=== PATIENT | female | born 1945 | race Caucasian/White ===

== ENCOUNTER 2016-10-08 10:11 | Outpatient (CLI) ==
[2014-07-13 12:08] VITALS: BMI 38.0
[2016-10-08 10:31] LABS: HEMATOCRIT 36.9 % (37.0-47.0); HEMOGLOBIN 12.2 g/dl (12.0-16.0); MEAN CORPUSCULAR HEMOGLOBIN 28.3 pg (27.0-31.0); MEAN CORPUSCULAR HGB CONC 33.1 (31.8-35.4); MEAN CORPUSCULAR VOLUME 85.6 fl (81.0-99.0); RED BLOOD COUNT 4.31 10^6/ul (4.20-5.40); WHITE BLOOD COUNT 7.4 K/ul (4.6-10.2)
[2016-10-08 11:13] LABS: ALBUMIN 3.2 g/dL (3.4-5.0); ALBUMIN/GLOBULIN RATIO 0.86; ANION GAP 14.2; BILIRUBIN,TOTAL 0.88 mg/dL (0.00-1.20); BUN/CREATININE RATIO 18.82; CALCIUM 9.3 mg/dL (8.2-10.2); CREATININE 0.85 mg/dL (0.60-1.30); POTASSIUM 4.2 mmol/L (3.5-5.10); TOTAL PROTEIN 6.9 g/dL (5.8-8.1)
[2016-10-09 15:50] LABS: URINE MALB/CR RATIO 21.1 mg/g creat (0.0-30.0)
== END 2016-10-08 10:12 | disposition home or self-care (01) ==
LOC: LAB 10:11
PROVIDERS: ATTEND Internal Medicine Endocrinology, Diabetes & Metabolism
DX: E11.9 Type 2 diabetes mellitus without complications (principal); E55.9 Vitamin D deficiency, unspecified; R53.83 Other fatigue; I25.10 Atherosclerotic heart disease of native coronary artery without angina pectoris; R94.6 Abnormal results of thyroid function studies
CPT/HCPCS: 36415; 80053; 80061; 82043; 82306; 83036; 84439; 84443; 85027

== ENCOUNTER 2017-01-22 13:45 | Emergency (ER) ==
[2017-01-22 13:58] VITALS: BP 137/82; TEMP 99.1; BMI 37.5
--- NOTE | 2017-01-22 14:11 | ED.PDOC ---
General ED Provider: Dr. HERNANDO WATKINS JR Chief Complaint: Bite Stated Complaint: Red bumps to left calf left inner thigh bite. not see insect No Tx at home[ End ]99.1 75 20 97% 137/82 3/10 Time Seen by Physician: 14:10 Mode of Arrival: Walk-In Information Source: Patient Exam Limitations: No limitations Primary Care Provider: TOMMY VANN Nursing and Triage Documentation Reviewed and Agree: No Skin Complaint Exam - Skin Rash/Itching Complaint/Exam Symptoms Are: Still present Initial Severity: Mild Current Severity: Mild Location: left posterior calf an d left medial thigh- two sites Potential Exposures: Reports: Insect bite, Other ((note cut on left forearm- with ecchymoses ventrally but also note dorsal ecchymoses- statesx since started plavix) Review of Systems - Review Of Systems Constitutional: Reports: No symptoms Eyes: Reports: No symptoms Ears, Nose, Mouth, Throat: Reports: No symptoms Respiratory: Reports: No symptoms Cardiac: Reports: No symptoms GI: Reports: No symptoms : Reports: No symptoms Musculoskeletal: Reports: No symptoms Skin: Reports: Bruising, Lesions Neurological: Reports: No symptoms Endocrine: Reports: No symptoms Hematologic/Lymphatic: Reports: No symptoms All Other Systems: Other Past Medical History - Past Medical History Endocrine: Reports: DM 2 Cardiovascular: Reports: Hypertension Respiratory: Reports: COPD, Asthma Hematological: Reports: None Gastrointestinal: Reports: None Genitourinary: Reports: None Neuro/Psych: Reports: Depression Musculoskeletal: Reports: Arthritis Cancer: Reports: None Last Menstrual Period: hysterectomy - Surgical History General Surgical History: Reports: Hysterectomy, Cholecystectomy, Back Surgery - Family History Family History: Reports: None - Social History Smoking Status: Never smoker Hx Substance Use: No Alcohol Screening: None Physical Exam - Physical Exam Appearance: Well-appearing, Obese Pain Distress: Mild Neck: Supple Respiratory: Airway patent Skin: Warm, Dry, Normal color (note lesions) Neurological: Sensation intact, Motor intact, Reflexes intact, Cranial nerves intact, Alert, Oriented Critical Care Note - Critical Care Note Total Time (mins): 0 Course - Course Vital Signs: Temp Pulse Resp BP Pulse Ox 01/22/17 13:46 99.1 F 75 20 137/82 97 Departure - Departure Time of Disposition: 14:18 Disposition: HOME SELF-CARE Discharge Problem: Insect bite Qualifiers: Encounter type: initial encounter Qualifier Code: (W57.XXXA) Bitten or stung by nonvenomous insect and other nonvenomous arthropods, initial encounter Instructions: Insect Bite or Sting (ED) Condition: Good Pt referred to PMD for follow-up: Yes Additional Instructions: may use warm soaks three times a day may use benadryl if itching recheck if increasing in size if increase pain or drainage recommend insect spray when outside note bruising on arms; 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 if 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 plavix with bruising Allergies/Adverse Reactions: Allergies cefaclor [From Ceclor] Adverse Reaction (Verified 01/22/17 13:52) cephalexin monohydrate [From Keflex] Adverse Reaction (Verified 01/22/17 13:52) erythromycin base Adverse Reaction (Verified 01/22/17 13:52) minocycline HCl [From Minocin] Adverse Reaction (Verified 01/22/17 13:52) Penicillins Adverse Reaction (Verified 01/22/17 13:52) Skin Cleanser Combination No.4 [From Minocin] Adverse Reaction (Verified 13:52) Home Medications: Ambulatory Orders Citalopram Hydrobromide [Celexa] 20 mg PO DAILY 04/07/13 Furosemide [Lasix] 40 mg PO DAILY 04/07/13 Lisinopril [Zestril] 20 mg PO DAILY 04/07/13 Metformin HCl 1,000 mg PO BID LUNCH & SUPPER 04/07/13 Albuterol Sulfate [Proair Hfa] 2 puff IH QID 07/13/14 Celecoxib [Celebrex] 200 mg PO DAILYWM 07/13/14 Esomeprazole Magnesium [Nexium] 40 mg PO DAILYWM 07/13/14 Fluticasone/Salmeterol 250/50 [Advair 250-50 Diskus] 1 puff IH DAILY 07/13/14 Ipratropium/Albuterol Neb [Duoneb] 1 vial NEB RTQID 07/13/14 Potassium Chloride [Klor-Con 10] 10 meq PO DAILY 07/13/14
== END 2017-01-22 14:28 | disposition other institution (70) ==
LOC: ED 13:45
DX: S70.362A Insect bite (nonvenomous), left thigh, initial encounter (principal); S80.862A Insect bite (nonvenomous), left lower leg, initial encounter; W57.XXXA Bitten or stung by nonvenomous insect and other nonvenomous arthropods, initial encounter
CPT/HCPCS: 99282

== ENCOUNTER 2017-02-27 10:16 | Outpatient (CLI) | END 2017-02-27 10:17 | disposition home or self-care (01) | LOC: LAB 10:16 | PROVIDERS: ATTEND Internal Medicine Endocrinology, Diabetes & Metabolism | DX: E05.90 Thyrotoxicosis, unspecified without thyrotoxic crisis or storm (principal); E11.9 Type 2 diabetes mellitus without complications | CPT/HCPCS: 36415; 83036; 84439; 84443; 84481; 86376 ==

== ENCOUNTER 2017-04-26 19:40 | Outpatient (CLI) | END 2017-04-26 19:41 | disposition short-term general hospital (02) | LOC: AMBL 19:40 | PROVIDERS: ATTEND Internal Medicine Geriatric Medicine | DX: M25.512 Pain in left shoulder (principal); W01.0XXA Fall on same level from slipping, tripping and stumbling without subsequent striking against object, initial encounter ==

== ENCOUNTER 2017-05-01 21:37 | Outpatient (CLI) | END 2017-05-01 21:38 | disposition short-term general hospital (02) | LOC: AMBL 21:37 | PROVIDERS: ATTEND Internal Medicine Geriatric Medicine | DX: M79.89 Other specified soft tissue disorders (principal); Z98.890 Other specified postprocedural states ==

== ENCOUNTER 2017-07-15 13:08 | Outpatient (CLI) ==
[2017-07-15 13:44] LABS: ANION GAP 20.3; BUN/CREATININE RATIO 23.91; CALCIUM 9.8 mg/dL (8.2-10.2); CREATININE 2.3 mg/dL (0.60-1.30); POTASSIUM 4.3 mmol/L (3.5-5.10)
== END 2017-07-15 13:09 | disposition home or self-care (01) ==
LOC: LAB 13:08
PROVIDERS: ATTEND Nurse Practitioner Family
DX: I50.23 Acute on chronic systolic (congestive) heart failure (principal)
CPT/HCPCS: 36415; 80048

== ENCOUNTER 2017-07-23 12:50 | Outpatient (CLI) | payer OTHER ==
[2017-07-23 13:30] LABS: ANION GAP 14.5; BUN/CREATININE RATIO 17.05; CALCIUM 9.3 mg/dL (8.2-10.2); CREATININE 1.29 mg/dL (0.60-1.30); POTASSIUM 4.5 mmol/L (3.5-5.10)
== END 2017-07-23 12:51 | disposition home or self-care (01) ==
LOC: LAB 12:50
PROVIDERS: ATTEND Physician Assistant
DX: R35.8 Other polyuria (principal)
CPT/HCPCS: 36415; 80048

== ENCOUNTER 2017-07-28 23:16 | Outpatient (CLI) | END 2017-07-28 23:17 | disposition left against medical advice (07) | LOC: AMBL 23:16 | PROVIDERS: ATTEND Family Medicine | DX: Z04.3 Encounter for examination and observation following other accident (principal); W19.XXXA Unspecified fall, initial encounter ==

== ENCOUNTER 2017-11-04 07:52 | Outpatient (CLI) | END 2017-11-04 07:53 | disposition left against medical advice (07) | LOC: AMBL 07:52 | PROVIDERS: ATTEND Internal Medicine | DX: S09.90XA Unspecified injury of head, initial encounter (principal); W19.XXXA Unspecified fall, initial encounter; R60.0 Localized edema; I50.9 Heart failure, unspecified; R53.1 Weakness ==

== ENCOUNTER 2017-11-06 13:43 | Outpatient (CLI) | payer OTHER | END 2017-11-06 13:44 | disposition home or self-care (01) | LOC: LAB 13:43 | PROVIDERS: ATTEND Internal Medicine Endocrinology, Diabetes & Metabolism | DX: E11.9 Type 2 diabetes mellitus without complications (principal); E03.9 Hypothyroidism, unspecified | CPT/HCPCS: 36415; 80053; 83036; 84439; 84443; 85027 ==

== ENCOUNTER 2018-01-10 03:25 | Outpatient (CLI) | END 2018-01-10 03:30 | disposition left against medical advice (07) | LOC: AMBL 03:25 | PROVIDERS: ATTEND Emergency Medicine | DX: Z74.2 Need for assistance at home and no other household member able to render care (principal); S40.819A Abrasion of unspecified upper arm, initial encounter; W06.XXXA Fall from bed, initial encounter ==

== ENCOUNTER 2018-02-04 11:50 | Outpatient (CLI) ==
--- NOTE | 2018-02-04 13:08 | DI ---
EXAM: Three views of the left hand HISTORY: Fall with pain. COMPARISON: None FINDINGS: There is narrowing of the radiocarpal joint and the first CMC joint. There is narrowing of the DIP and PIP joints with minimal osteophyte formation. The MCP joints are relatively well mainta ined. The soft tissues demonstrate mild soft tissue swelling. IMPRESSION: 1. No acute abnormality or displaced fracture. 2. Scattered degenerative disease most pronounced in the DIP and PIP joint.
--- NOTE | 2018-02-04 13:10 | DI ---
EXAM: Two views of the left hip HISTORY: Fall with left hip pain. COMPARISON: None FINDINGS: There is narrowing and degenerative change of the left hip joint space. There is no displa angela fracture or dislocation. There is no lytic or blastic lesion. Limited views of the pelvis is un remarkable. The soft tissues are normal. IMPRESSION: Degenerative disease of the left hip with no displaced fracture or dislocation identified.
== END 2018-02-04 11:51 | disposition home or self-care (01) ==
LOC: RAD 11:50
PROVIDERS: ATTEND Family Medicine
DX: S79.912A Unspecified injury of left hip, initial encounter (principal); S69.92XA Unspecified injury of left wrist, hand and finger(s), initial encounter; W19.XXXA Unspecified fall, initial encounter

== ENCOUNTER 2018-02-15 15:05 | Observation (INO) ==
[2018-02-15] MEDS ORDERED: LEVAQUIN 500 MG in PREMIX 100 ML D5W 1 BAG IV STA (15:17)
[2018-02-15] MEDS ORDERED: DUONEB NEB STA (15:18)
[2018-02-15] MEDS ORDERED: SOLU-MEDROL 40 MG IVP STA (15:33)
[2018-02-15] MEDS ORDERED: PHENERGAN WITH CODEINE 6.25/10 MG/5 ML PO STA (15:36)
[2018-02-15] MEDS ORDERED: LEVAQUIN 100 ML IV ONE (15:37)
--- NOTE | 2018-02-15 16:19 | ED.PDOC ---
Procedures - IV/Art Line Insertion Location: Rt wrist Type of Line: Peripheral IV Invasive Line/IV Catheter Gauge: 22 Number of Attempts: 1 Blood Return Positive: Yes Invasive Line/IV Flushes Without Difficulty: Yes Conscious Sedation - Pre-op Assessment Weight: 208 lb Surgical History: GALLBLADDER. HYSTERECTOMY. left shoulder repari - Medical History Past Medical History: Hypertension, Diabetes, COPD, Asthma, Depression, Other Other History: DDD BACK - Physical Exam Heart Rate/Rhythm: Regular Rhythm
--- NOTE | 2018-02-15 16:34 | CT ---
EXAM: CT chest without contrast TECHNIQUE: Helical axial CT of the chest was performed without contrast with coronal and sagittal rec onstructions. COMPARISON: Chest x-ray from 07/13/2014 HISTORY: Cough and fever FINDINGS: Lung parenchyma: There is some minimal bibasilar atelectasis. There is a noncalcified soft tissue no dule in the right upper lobe laterally measuring 0.7 cm in diameter. No other nodules are seen. The re is no infiltrate or failure or effusion. Mediastinum: No pathologic hilar or mediastinal adenopathy. There are advanced coronary calcification s. There is no pericardial effusion. There is moderate calcific atherosclerosis of the aorta with no aneurysm. Upper Abdomen: No focal or acute abnormality. There has been prior cholecystectomy. The adrenal gland s are somewhat prominent with no focal mass identified. Osseous structures: Nothing acute. The thyroid gland is somewhat irregular and fairly prominent on the right. There has been prior ORIF for left humerus fracture. No supraclavicular or axillary adenopathy. IMPRESSION: 1. Bibasilar atelectasis with no effusion or infiltrate or failure. 2. Right upper lobe pulmonary nodule as described. Recommend further evaluation as per Fleischner S ociety guidelines below. 3. Other findings as above. Solitary nodule size: <6 mm - low risk patients: no follow-up needed - high risk patients: optional CT at 12 months Solitary nodule size: 6-8 mm - low risk patients: follow-up at 6-12 months, then consider further follow-up at 18-24 months - high risk patients: initial follow-up CT at 6-12 months and then at 18-24 months if no change Solitary nodule size: >8 mm - either low or high risk patients consider follow-up CT at 3 months, and/or CT-PET, and/or biopsy - -
--- NOTE | 2018-02-15 16:42 | ED.PDOC ---
General ED Provider: Dr. TOMMY VANN-ER Chief Complaint: Shortness of Air Stated Complaint: im coughing and wheezing Time Seen by Physician: 15:10 Mode of Arrival: Wheelchair Information Source: Patient, Family Exam Limitations: No limitations Primary Care Provider: TOMMY VANN Nursing and Triage Documentation Reviewed and Agree: Yes Does patient meet sepsis criteria?: No If yes, has appropriate treatment been initiated?: No System Inflammatory Response Syndrome: Not Applicable Sepsis Protocol: For patient's 13 years and over: Temp is 96.8 and below OR 101 and greater Pulse >90 BPM Resp >20/minute Acutely Altered Mental Status Are patient's symptoms suggestive of a new infection, such as: -Pneumonia -Skin, Soft Tissue -Endocarditis -UTI -Bone, Joint Infection -Implantable Device -Acute Abdominal Infection -Wound Infection -Meningitis -Blood Stream Catheter Infection -Unknown Respiratory Complaint Exam - Respiratory Complaint/Exam Onset/Duration: 24 hrs Symptoms Are: Still present Timing: Intermittent Initial Severity: Moderate Current Severity: Moderate Location: Chest Character: Reports: Productive cough Alleviating: Reports: Bronchodilators Associated Signs and Symptoms: Reports: Fever, Chills, Wheezing. Denies: Rapid breathing, Dyspnea, Chest pain, Pleuritic chest pain, Hemoptysis, Dizziness, Calf pain, Calf swelling, Edema, URI, Nasal congestion, Hoarseness History of Healthcare-Acquired Pneumonia: No Home Oxygen Use: No Recent Stress Test: No Recent Echo/LV Function: No Current Antibiotic Use: No Current Asthma Medication Use: No Respiratory Distress: None Inadequate Respiratory Effort: Yes Dysphagia Present: No Stridor Present: No JVD Present: No Accessory Muscle Use: No Retractions: Not Present Diminished Breath Sounds: No Sinus Tenderness: None Grunting Respirations: No Kussmaul Respirations: No Differential Diagnoses: COPD Exacerbation Review of Systems - Review Of Systems Constitutional: Reports: No symptoms Eyes: Reports: No symptoms Ears, Nose, Mouth, Throat: Reports: No symptoms Respiratory: Reports: Cough, Short of air Cardiac: Reports: No symptoms GI: Reports: No symptoms : Reports: No symptoms Musculoskeletal: Reports: No symptoms Skin: Reports: No symptoms Neurological: Reports: No symptoms Endocrine: Reports: No symptoms Hematologic/Lymphatic: Reports: No symptoms All Other Systems: Reviewed and Negative Past Medical History - Past Medical History Previously Healthy: No Endocrine: Reports: DM 2 Cardiovascular: Reports: Hypertension Respiratory: Reports: COPD, Asthma Hematological: Reports: None Gastrointestinal: Reports: None Genitourinary: Reports: None Neuro/Psych: Reports: Depression Musculoskeletal: Reports: Arthritis Cancer: Reports: None Last Menstrual Period: na - Surgical History General Surgical History: Reports: Hysterectomy, Cholecystectomy, Back Surgery - Family History Family History: Reports: None - Social History Smoking Status: Never smoker Hx Substance Use: No Alcohol Screening: None - Immunizations Tetanus Shot up to Date: Yes Physical Exam - Physical Exam Appearance: Ill-appearing Eyes: LULÚ, EOMI, Conjunctiva clear ENT: Ears normal, Nose normal, Oropharynx normal Neck: Supple Respiratory: Rhonchi, Wheezes Cardiovascular: RRR GI/: Soft, Nontender, No masses, Bowel sounds normal, No Organomegaly Musculoskeletal: Normal strength, ROM intact, No edema, No calf tenderness Skin: Warm, Dry, Normal color Neurological: Sensation intact, Motor intact, Reflexes intact, Cranial nerves intact, Alert, Oriented Psychiatric: Affect appropriate Interpretation - Radiology Interpretation Radiology Interpretation By: Radiologist Radiology Results: Negative Exam Interpreted: CT Scan - EKG Interpretation Time of EKG #1: 16:42 Rate: Normal Rhythm: Sinus Ectopy: None Gypsy: NL ST Segment: Normal Interpretation: nsr Critical Care Note - Critical Care Note Total Time (mins): 0 Course - Course Hematology/Chemistry: 02/15/18 15:30 02/15/18 15:30 Orders, Labs, Meds: Lab Review 02/15/18 02/15/18 02/15/18 15:15 15:30 15:30 WBC 12.22 H RBC 4.14 L Hgb 11.9 L Hct 37.1 MCV 89.6 MCH 28.7 MCHC 32.1 RDW Coeff of Amaya 13.9 Plt Count 250 Immature Gran % (Auto) 0.7 Neut % (Auto) 76.4 Lymph % (Auto) 12.7 Phelps % (Auto) 7.7 Eos % (Auto) 2.2 Baso % (Auto) 0.3 Immature Gran # (Auto) 0.1 Neut # (Auto) 9.3 H Lymph # (Auto) 1.6 Phelps # (Auto) 0.9 Eos # (Auto) 0.3 Baso # (Auto) 0.0 Puncture Site Rr O2 Saturation 95.0 ABG pH 7.438 ABG pCO2 36.4 ABG pO2 75.0 L ABG HCO3 24.6 ABG Total CO2 26 ABG Base Excess 0 Morteza Test + FiO2 % 21.0 Sodium 144 Potassium 4.1 Chloride 108 H Carbon Dioxide 22 L Anion Gap 18.1 BUN 16 Creatinine 1.20 Estimated GFR (MDRD) 44.00 BUN/Creatinine Ratio 13.33 Glucose 142 H Lactic Acid Calcium 9.4 Total Bilirubin 0.4 AST 14 L ALT 10 L Alkaline Phosphatase 88 B-Natriuretic Peptide Total Protein 6.9 Albumin 3.2 L Globulin 3.7 Albumin/Globulin Ratio 0.86 Procalcitonin 02/15/18 02/15/18 02/15/18 15:30 15:30 15:30 WBC RBC Hgb Hct MCV MCH MCHC RDW Coeff of Amaya Plt Count Immature Gran % (Auto) Neut % (Auto) Lymph % (Auto) Phelps % (Auto) Eos % (Auto) Baso % (Auto) Immature Gran # (Auto) Neut # (Auto) Lymph # (Auto) Phelps # (Auto) Eos # (Auto) Baso # (Auto) Puncture Site O2 Saturation ABG pH ABG pCO2 ABG pO2 ABG HCO3 ABG Total CO2 ABG Base Excess Morteza Test FiO2 % Sodium Potassium Chloride Carbon Dioxide Anion Gap BUN Creatinine Estimated GFR (MDRD) BUN/Creatinine Ratio Glucose Lactic Acid 41.5 H Calcium Total Bilirubin AST ALT Alkaline Phosphatase B-Natriuretic Peptide 102 H Total Protein Albumin Globulin Albumin/Globulin Ratio Procalcitonin 0.09 Orders Category Date Time Status ABG DRAW REQUEST Stat CARDIO 02/15/18 15:16 Completed NEBULIZER TREATMENT Stat CARDIO 02/15/18 15:18 Completed IV [ED IV/MEDIPORT/POWERPORT] .ONCE EMERGENCY 02/15/18 15:16 Active ABG Stat LAB 02/15/18 15:15 Completed BLOOD CULTURE (ED ONLY) Stat LAB 02/15/18 15:30 Received BNP [B-TYPE NATRIURETIC PEPTIDE] Stat LAB 02/15/18 15:30 Completed CBC W/ AUTO DIFF Stat LAB 02/15/18 15:30 Completed COMPREHENSIVE METABOLIC PANEL Stat LAB 02/15/18 15:30 Completed LACTIC ACID Stat LAB 02/15/18 15:30 Completed PROCALCITONIN Stat LAB 02/15/18 15:30 Completed 0.9 % Sodium Chloride [Saline Flush] MEDS 02/15/18 15:16 Ordered 1 syr IVF PRN PRN Codeine/Promethazine Syrup [Phenergan with Codeine 6.25 MEDS 02/15/18 15:36 Discontinued /10 mg/5 ml] 10 ml PO ONCE STA Ipratropium/Albuterol Neb [Duoneb] MEDS 02/15/18 15:18 Discontinued 1 vial NEB ONCE STA Levofloxacin/D5w [Levaquin] 100 ml MEDS 02/15/18 15:37 Discontinued IV .STK-MED Levofloxacin/D5w [Levaquin] 500 mg MEDS 02/15/18 15:17 Discontinued Premix 100 ml D5w 1 bag IV ONCE Methylprednisolone Sod Succ/Pf [Solu-Medrol 40 mg] MEDS 02/15/18 15:33 Discontinued [address] ONCE STA CT CHEST W/O CONTRAST Stat RADS 02/15/18 15:18 Completed Medications Generic Name Dose Route Start Last Admin Trade Name Freq PRN Reason Stop Dose Admin Sodium Chloride 1 syr 02/15/18 15:16 Saline Flush IVF PRN PRN To flush IV Discontinued Medications Generic Name Dose Route Start Last Admin Trade Name Freq PRN Reason Stop Dose Admin Albuterol/Ipratropium 1 vial 02/15/18 15:18 02/15/18 15:36 Duoneb NEB 02/15/18 15:19 1 vial ONCE STA Administration Levofloxacin/Dextrose 500 mg/ 100 mls @ 100 mls/hr 02/15/18 15:17 02/15/18 16 :22 Dextrose IV 02/15/18 16:16 100 mls/hr ONCE STA Administration Methylprednisolone Sodium Succinate 40 mg 02/15/18 15:33 02/15/18 16:22 Solu-Medrol 40 Mg IVP 02/15/18 15:34 40 mg ONCE STA Administration Promethazine HCl/Codeine 10 ml 02/15/18 15:36 02/15/18 15:47 Phenergan With Codeine 6.25/10 Mg/5 Ml PO 02/15/18 15:37 10 ml ONCE STA Administration Vital Signs: Temp Pulse Resp BP Pulse Ox 02/15/18 15:08 101.5 F H 101 H 22 143/87 H 94 L Departure - Departure Time of Disposition: 16:43 Disposition: PLACED OBSERVATION Discharge Problem: COPD exacerbation Instructions: COPD (Chronic Obstructive Pulmonary Disease) (ED) Condition: Good Pt referred to PMD for follow-up: Yes IPMP verified?: No Allergies/Adverse Reactions: Allergies cefaclor [From Ceclor] Adverse Reaction (Verified 02/15/18 15:12) cephalexin monohydrate [From Keflex] Adverse Reaction (Verified 02/15/18 15:12) erythromycin base Adverse Reaction (Verified 02/15/18 15:12) minocycline HCl [From Minocin] Adverse Reaction (Verified 02/15/18 15:12) Penicillins Adverse Reaction (Verified 02/15/18 15:12) Skin Cleanser Combination No.4 [From Minocin] Adverse Reaction (Verified 15:12) Home Medications: Ambulatory Orders Citalopram Hydrobromide [Celexa] 20 mg PO DAILY 04/07/13 Furosemide [Lasix] 40 mg PO DAILY 04/07/13 Lisinopril [Zestril] 20 mg PO DAILY 04/07/13 Metformin HCl 1,000 mg PO BID LUNCH & SUPPER 04/07/13 Albuterol Sulfate [Proair Hfa] 2 puff IH QID 07/13/14 Celecoxib [Celebrex] 200 mg PO DAILYWM 07/13/14 Esomeprazole Magnesium [Nexium] 40 mg PO DAILYWM 07/13/14 Fluticasone/Salmeterol 250/50 [Advair 250-50 Diskus] 1 puff IH DAILY 07/13/14 Ipratropium/Albuterol Neb [Duoneb] 1 vial NEB RTQID 07/13/14 Potassium Chloride [Klor-Con 10] 10 meq PO DAILY 07/13/14 Disposition Discussed With: Patient, Family
[2018-02-15] MEDS ORDERED: TYLENOL PO PRN (16:45)
[2018-02-15] MEDS ORDERED: PHENERGAN WITH CODEINE 6.25/10 MG/5 ML PO PRN (16:48)
[2018-02-15] MEDS ORDERED: GLUCOPHAGE ONE (17:13)
[2018-02-15] MEDS ORDERED: NON-FORMULARY MEDICATION (Metformin Hcl [Metformin Hcl] 500 MG) PO SCH (17:30)
[2018-02-15] MEDS: DUONEB NEB SCH ×2 (17:50→23:30)
[2018-02-15 18:04] VITALS: BMI 40.5
[2018-02-15] MEDS ORDERED: ADVAIR 250-50 DISKUS IH SCH (21:00)
[2018-02-15] MEDS ORDERED: COLACE PO SCH (21:00)
[2018-02-15] MEDS: MUCINEX PO SCH (21:42)
[2018-02-15] MEDS: SOLU-MEDROL 40 MG IVP SCH (21:45)
[2018-02-15] MEDS: HUMULIN R SUBCUT PRN (21:57)
[2018-02-16] MEDS: DUONEB NEB SCH ×6 (05:20→23:45)
[2018-02-16] MEDS: HUMULIN R SUBCUT PRN ×2 (05:46→12:00)
[2018-02-16] MEDS ORDERED: LOPRESSOR PO SCH (09:00)
[2018-02-16] MEDS: ASPIRIN EC PO SCH (09:38)
[2018-02-16] MEDS: NON-FORMULARY MEDICATION (Potassium Chloride [Klor-Con 10] 10 MEQ) PO SCH ×2 (09:38→20:19)
[2018-02-16] MEDS: ADVAIR 250-50 DISKUS IH SCH ×2 (09:39→20:18)
[2018-02-16] MEDS: SOLU-MEDROL 40 MG IVP SCH ×2 (09:39→20:41)
[2018-02-16] MEDS: NON-FORMULARY MEDICATION (Isosorbide Mononitrate [Isosorbide Mononitrate Er] 60 MG) PO SCH (09:40)
[2018-02-16] MEDS: CELEXA PO SCH (09:40)
[2018-02-16] MEDS: METHIMAZOLE 2.5 MG PO SCH (09:40)
[2018-02-16] MEDS: ERGOCALCIFEROL 2000 UNIT PO SCH (09:41)
[2018-02-16] MEDS: COLACE PO SCH ×2 (09:41→20:18)
[2018-02-16] MEDS: LEVAQUIN PO SCH (09:42)
[2018-02-16] MEDS: LASIX TAB PO SCH (09:42)
[2018-02-16] MEDS: LISINOPRIL 5 MG PO SCH (09:43)
[2018-02-16] MEDS: METOPROLOL SUCCINATE 50 MG PO SCH (09:43)
[2018-02-16] MEDS: TRADJENTA PO SCH (09:43)
[2018-02-16] MEDS: GUAIFENESIN 800 MG PO SCH ×3 (09:44→20:18)
[2018-02-16] MEDS: LIPITOR PO SCH (09:45)
[2018-02-16] MEDS: LOVENOX SUBCUT SCH (09:46)
[2018-02-16] MEDS: MUCINEX PO SCH (10:21)
[2018-02-16] MEDS: NON-FORMULARY MEDICATION (Metformin Hcl [Metformin Hcl] 500 MG) PO SCH ×2 (12:00→16:56)
[2018-02-16] MEDS: NON-FORMULARY MEDICATION (Esomeprazole Magnesium [Nexium] 40 MG) PO SCH (16:57)
[2018-02-16] MEDS: PLAVIX PO SCH (16:57)
[2018-02-17] MEDS: DUONEB NEB SCH ×3 (05:18→18:07)
[2018-02-17] MEDS: LEVAQUIN PO SCH (06:40)
[2018-02-17] MEDS: LASIX TAB PO SCH (06:40)
[2018-02-17] MEDS: SOLU-MEDROL 40 MG IVP SCH (08:52)
[2018-02-17] MEDS: CELEXA PO SCH (08:53)
[2018-02-17] MEDS: NON-FORMULARY MEDICATION (Potassium Chloride [Klor-Con 10] 10 MEQ) PO SCH (08:53)
[2018-02-17] MEDS: ADVAIR 250-50 DISKUS IH SCH (08:53)
[2018-02-17] MEDS: TRADJENTA PO SCH (08:53)
[2018-02-17] MEDS: COLACE PO SCH (08:53)
[2018-02-17] MEDS: ASPIRIN EC PO SCH (08:54)
[2018-02-17] MEDS: ERGOCALCIFEROL 2000 UNIT PO SCH (08:54)
[2018-02-17] MEDS: PLAVIX PO SCH (08:54)
[2018-02-17] MEDS: NON-FORMULARY MEDICATION (Isosorbide Mononitrate [Isosorbide Mononitrate Er] 60 MG) PO SCH (08:55)
[2018-02-17] MEDS: LISINOPRIL 5 MG PO SCH (08:55)
[2018-02-17] MEDS: LIPITOR PO SCH (08:55)
[2018-02-17] MEDS: METHIMAZOLE 2.5 MG PO SCH (08:55)
[2018-02-17] MEDS: METOPROLOL SUCCINATE 50 MG PO SCH (08:55)
[2018-02-17] MEDS: GUAIFENESIN 800 MG PO SCH ×2 (08:55→14:38)
[2018-02-17] MEDS: LOVENOX SUBCUT SCH (10:00)
[2018-02-17] MEDS: NON-FORMULARY MEDICATION (Metformin Hcl [Metformin Hcl] 500 MG) PO SCH ×2 (12:49→17:48)
[2018-02-17 16:21] VITALS: BP 114/56; TEMP 98.6
[2018-02-17] MEDS: NON-FORMULARY MEDICATION (Esomeprazole Magnesium [Nexium] 40 MG) PO SCH (17:48)
--- NOTE | 2018-04-01 10:49 | HP ---
CHIEF COMPLAINT: "I am coughing and I am wheezing." DISCUSSION: This is a 72-year-old lady with history of COPD who presented for treatment in the Emergency Department with shortness of breath. For 4 to 5 days she has had shortness of breath with cough productive of light yellow sputum, also associated with wheezing. She was seen in the Emergency Department with the above symptoms, given steroids, neb treatment without significant relief in her symptoms. Her blood gases revealed pH 7.4, pc02 36, p02 slightly low at 75%. She also was noted to have 101 temperature. Radiographic imaging did not confirm any evidence of infiltrate; however, because of relative low pulse oximetry she was placed in observation with treatment of COPD exacerbation. PAST MEDICAL HISTORY: MEDICATIONS: Lasix Zestril Metformin ProAir Celebrex Nexium Advair Duoneb Klorcon ALLERGIES: CECLOR, KEFLEX, ERYTHROMYCIN, MINOCYCLINE, PENICILLIN PAST MEDICAL HISTORY: Significant for history of COPD History of depression History of anxiety Hypertension History of diabetes Type 2 Degenerative joint disease PAST SURGICAL HISTORY: Hysterectomy Cholecystectomy Back surgery FAMILY HISTORY: Reviewed and thought not to be pertinent to discussion. SOCIAL HISTORY: No smoking, alcohol or tobacco use. REVIEW OF SYSTEMS: Some mild nasal congestion, no headaches, visual changes, tinnitus, chest pain only with cough; no hemoptysis, denies abdominal pain or blood in the stool, urinary symptoms or seizures. PHYSICAL EXAMINATION: V/S: Temperature 101.5, pulse 100, respiratory rate 22, BP 143/86. HEENT: Pupils are round. NECK: Supple. CHEST: Bilateral expiratory wheezing. CARDIOVASCULAR: Regular rate and rhythm. ABDOMEN: Soft, nontender. EXTREMITIES: Distal extremities without cyanosis or edema. ASSESSMENT: 1. COPD EXACERBATION PLAN: 1. Steroids 2. Antibiotics 3. Bronchodilators 4. Please see orders MTDD
--- NOTE | 2018-04-01 10:53 | DS ---
PRINCIPAL DIAGNOSIS: COPD EXACERBATION DISCUSSION: 72-year-old lady who presented to the Emergency Department with productive cough , wheezing, shortness of breath with temperature of 101. Oximetry was mildly impaired. The patient was admitted for COPD exacerbation. CLINICAL COURSE: She was placed on antibiotics, bronchodilators and steroids. She had marked improvement in her symptoms. On the following day, it eventually resolved. At time of discharge, she was afebrile. Her oximetry was acceptable and we thought she was stable for discharge. She will be discharged with Levaquin as well as tapering dose of Prednisone. She will be discharged home. She will followup with me in one week. PHU
== END 2018-02-17 17:50 | disposition home or self-care (01) ==
LOC: ED 15:05 → MEDSURG B 17:01
PROVIDERS: ADMIT Family Medicine; ATTEND Family Medicine
DX: R50.9 Fever, unspecified (principal); J44.1 Chronic obstructive pulmonary disease with (acute) exacerbation; R06.2 Wheezing
CPT/HCPCS: 36415; 80053; 82803; 82962; 83605; 83880; 84145; 85025; 87040; 87070; 87077; 87186; 94640; 96366; 96374; 96375; 97802; 99284

== ENCOUNTER 2018-09-09 09:44 | Outpatient (CLI) | END 2018-09-09 09:58 | disposition short-term general hospital (02) | LOC: AMBL 09:44 | PROVIDERS: ATTEND Emergency Medicine | DX: R53.1 Weakness (principal); R60.0 Localized edema; J80 Acute respiratory distress syndrome; R06.2 Wheezing; R05 Cough; R73.9 Hyperglycemia, unspecified ==

== ENCOUNTER 2018-10-15 13:28 | Outpatient (CLI) | payer OTHER ==
--- NOTE | 2018-10-15 14:10 | DI ---
EXAM: Four views of the left shoulder. History: Left shoulder pain. Findings: No acute fracture or dislocation. Grossly intact hardware. Impression: No acute osseous abnormality
== END 2018-10-15 13:29 | disposition home or self-care (01) ==
LOC: RAD 13:28
PROVIDERS: ATTEND Family Medicine
DX: M25.512 Pain in left shoulder (principal)

== ENCOUNTER 2019-10-24 07:17 | Inpatient (IN) ==
[2019-10-24] MEDS ORDERED: SODIUM CHLORIDE 1,000 ML IV STA (07:47)
--- NOTE | 2019-10-24 07:48 | ED.PDOC ---
General ED Provider: Dr. TOMMY RUIZ Chief Complaint: Altered Mental Status Stated Complaint: Change in mentation. Confused and disoriented Brought in [facility] EMS from home. Incontinent of B/B. States she activated life alert for assistance. States she was visiting with her "sister in law" and her baby-who is 10 y/o. States she believes she is confused -is oriented to Self(I am Bhupendra Garsia)-location (I am at [facility]) and circumstances ( confused and came here for help). Admits to hx diabetes, hypertension and heart disease) Denies use of alcohol or elicit drugs Time Seen by Physician: 07:40 Mode of Arrival: Ambulance Information Source: Patient and EMT Exam Limitations: Altered mental status Primary Care Provider: TOMMY VANN Nursing and Triage Documentation Reviewed and Agree: Yes Does patient meet sepsis criteria?: No System Inflammatory Response Syndrome: Not Applicable Sepsis Protocol: For patient's 13 years and over: Temp is 96.8 and below OR 101 and greater Pulse >90 BPM Resp >20/minute Acutely Altered Mental Status Are patient's symptoms suggestive of a new infection, such as: -Pneumonia -Skin, Soft Tissue -Endocarditis -UTI -Bone, Joint Infection -Implantable Device -Acute Abdominal Infection -Wound Infection -Meningitis -Blood Stream Catheter Infection -Unknown Neurological Complaint Exam Altered Mental Status Complaint/Exam Current Mental Status: Confusion Last Known Well: last week Onset: Sudden Duration: 12 hr Symptoms Are: Still present Timing: Constant Episodes Lasting: Minutes Initial Severity: Moderate Current Severity: Moderate Eye Deviation Present: No Character: Reports Lethargy Associated Signs and Symptoms: Reports Dizziness, Weakness, Illness and Nausea Related History: Reports Similar episode Cardiac Risk Factors: Reports None CVA Risk Factors: Reports None Related Surgical History: Reports None Carotid Bruit Present: No Nystagmus Present: No Gag Reflex Present: No Meningeal Signs Positive: No Focal Weakness: Present None Focal Sensory Loss: Present None Gait: Unable Babinski Sign: Positive Left and Negative Left Heel to Toe Normal: No Signs of Injury: Present Normal findings Thrombolytics Considered: No Differential Diagnoses: Metabolic Disorder, TIA, CVA and Other (Dementia) Review of Systems Review Of Systems Constitutional: Reports Weakness Eyes: Reports No symptoms Ears, Nose, Mouth, Throat: Reports No symptoms Respiratory: Reports No symptoms Cardiac: Reports No symptoms GI: Reports No symptoms : Reports No symptoms Musculoskeletal: Reports No symptoms Skin: Reports No symptoms Neurological: Reports Emotional problems, Cognitive dysfunction and Headache Endocrine: Reports No symptoms Hematologic/Lymphatic: Reports No symptoms All Other Systems: Reviewed and Negative [facility] Medical History (Updated 10/24/19 @ 11:14 by RAYMOND HUIZAR RN) Chronic obstructive pulmonary disease Diabetes mellitus Heart disease Hypertension Incontinence in female (Acute) Seasonal allergies Social History Smoking and tobacco status: Never smoker Substance use type: does not use Female Reproductive History Menstrual Hx Hysterectomy: Yes Hx Tubal Ligation: No Physical Exam Physical Exam Appearance: Reports Ill-appearing and Obese Ill-appearing: Mild Pain Distress: None Eyes: Reports LULÚ, EOMI and Conjunctiva clear ENT: Reports Ears normal, Nose normal and Oropharynx normal Neck: Supple Respiratory: Reports Airway patent, Breath sounds clear, Breath sounds equal and Breath sounds diminished Cardiovascular: Reports RRR, Pulses normal, No rub and No murmur GI/: Reports Soft, Nontender, No masses and Bowel sounds normal Musculoskeletal: Reports Normal strength, ROM intact, No edema and No calf tenderness Skin: Reports Warm, Dry and Normal color Neurological: Reports Sensation intact, Motor intact, Alert to pain, Unresponsive and Abnormal reflexes Psychiatric: Reports Affect appropriate and Mood appropriate Interpretation EKG Interpretation Time of EKG #1: 08:03 Rate: Normal (80) Rhythm: Sinus Ectopy: None ST Segment: Other (T wave abnormality poss anterolat ishemia) Physician Notification Case Discussed Physician Notified: Javi-admit Time of Notification: 10:00 Critical Care Note Critical Care Note Total Time (mins): 30 Course Course Hematology/Chemistry: 10/26/19 05:03 10/26/19 05:03 Orders, Labs, Meds: Lab Review 10/24/19 10/24/19 10/24/19 07:47 07:50 07:50 WBC RBC Hgb Hct MCV MCH MCHC RDW Coeff of Amaya Plt Count Immature Gran % (Auto) Neut % (Auto) Lymph % (Auto) Carlton % (Auto) Eos % (Auto) Baso % (Auto) Immature Gran # (Auto) Neut # (Auto) Lymph # (Auto) Carlton # (Auto) Eos # (Auto) Baso # (Auto) PT INR Puncture Site Rbrach O2 Saturation 95.0 ABG pH 7.486 H ABG pCO2 38.6 ABG pO2 69.0 L ABG HCO3 29.2 H ABG Total CO2 30 H ABG Base Excess 6 H FiO2 % 21.0 Sodium Potassium Chloride Carbon Dioxide Anion Gap BUN Creatinine Estimated GFR (MDRD) BUN/Creatinine Ratio Glucose Lactic Acid Uric Acid Calcium Total Bilirubin AST ALT Alkaline Phosphatase Total Creatine Kinase Troponin I NT-Pro-B Natriuret Pep Total Protein Albumin Globulin Albumin/Globulin Ratio Procalcitonin Urine Color Yellow Urine Clarity Slightly Urine pH 5.5 Ur Specific [place] 1.025 Urine Protein Negative Urine Glucose (UA) Negative Urine Ketones Negative Urine Blood Negative Urine Nitrite Positive H Urine Bilirubin Negative Urine Urobilinogen 0.2 Ur Leukocyte Esterase Trace H Urine Microscopic RBC 0-2 Urine Microscopic WBC 10-20 Ur Squamous Epith Cells 10-20 Urine Bacteria 4+ Urine Opiates Screen Negative Ur Oxycodone Screen Negative Urine Methadone Screen Negative Ur Propoxyphene Screen Negative Ur Barbiturates Screen Negative U Tricyclic Antidepress Negative Ur Phencyclidine Scrn Negative Ur Amphetamine Screen Negative U Methamphetamines Scrn Negative U Benzodiazepines Scrn Negative Urine Cocaine Screen Negative U Cannabinoids Screen Negative Influ A Molecular Assay Negative by naat Influ B Molecular Assay Negative by naat 10/24/19 10/24/19 10/24/19 08:08 08:08 08:08 WBC 9.37 RBC 4.06 L Hgb 11.6 L Hct 36.4 L MCV 89.7 MCH 28.6 MCHC 31.9 RDW Coeff of Amaya 13.1 Plt Count 254 Immature Gran % (Auto) 0.3 Neut % (Auto) 70.5 Lymph % (Auto) 17.9 Carlton % (Auto) 6.2 Eos % (Auto) 4.4 Baso % (Auto) 0.7 Immature Gran # (Auto) 0.0 Neut # (Auto) 6.6 Lymph # (Auto) 1.7 Carlton # (Auto) 0.6 Eos # (Auto) 0.4 Baso # (Auto) 0.1 PT 9.5 INR 0.97 Puncture Site O2 Saturation ABG pH ABG pCO2 ABG pO2 ABG HCO3 ABG Total CO2 ABG Base Excess FiO2 % Sodium 144.9 Potassium 3.16 L Chloride 105.3 Carbon Dioxide 30.1 H Anion Gap 12.66 BUN 18.4 H Creatinine 1.15 Estimated GFR (MDRD) 46.00 BUN/Creatinine Ratio 16.00 Glucose 141.3 H Lactic Acid Uric Acid 7.12 H Calcium 8.68 Total Bilirubin 0.42 AST 31.8 ALT 11.8 Alkaline Phosphatase 99.9 Total Creatine Kinase 30.8 Troponin I < 0.012 NT-Pro-B Natriuret Pep Total Protein 6.41 Albumin 3.72 Globulin 2.69 Albumin/Globulin Ratio 1.38 Procalcitonin Urine Color Urine Clarity Urine pH Ur Specific [place] Urine Protein Urine Glucose (UA) Urine Ketones Urine Blood Urine Nitrite Urine Bilirubin Urine Urobilinogen Ur Leukocyte Esterase Urine Microscopic RBC Urine Microscopic WBC Ur Squamous Epith Cells Urine Bacteria Urine Opiates Screen Ur Oxycodone Screen Urine Methadone Screen Ur Propoxyphene Screen Ur Barbiturates Screen U Tricyclic Antidepress Ur Phencyclidine Scrn Ur Amphetamine Screen U Methamphetamines Scrn U Benzodiazepines Scrn Urine Cocaine Screen U Cannabinoids Screen Influ A Molecular Assay Influ B Molecular Assay 10/24/19 10/24/19 10/24/19 08:08 08:08 08:08 WBC RBC Hgb Hct MCV MCH MCHC RDW Coeff of Amaya Plt Count Immature Gran % (Auto) Neut % (Auto) Lymph % (Auto) Carlton % (Auto) Eos % (Auto) Baso % (Auto) Immature Gran # (Auto) Neut # (Auto) Lymph # (Auto) Carlton # (Auto) Eos # (Auto) Baso # (Auto) PT INR Puncture Site O2 Saturation ABG pH ABG pCO2 ABG pO2 ABG HCO3 ABG Total CO2 ABG Base Excess FiO2 % Sodium Potassium Chloride Carbon Dioxide Anion Gap BUN Creatinine Estimated GFR (MDRD) BUN/Creatinine Ratio Glucose Lactic Acid 0.75 Uric Acid Calcium Total Bilirubin AST ALT Alkaline Phosphatase Total Creatine Kinase Troponin I NT-Pro-B Natriuret Pep 248.000 H Total Protein Albumin Globulin Albumin/Globulin Ratio Procalcitonin 0.09 Urine Color Urine Clarity Urine pH Ur Specific [place] Urine Protein Urine Glucose (UA) Urine Ketones Urine Blood Urine Nitrite Urine Bilirubin Urine Urobilinogen Ur Leukocyte Esterase Urine Microscopic RBC Urine Microscopic WBC Ur Squamous Epith Cells Urine Bacteria Urine Opiates Screen Ur Oxycodone Screen Urine Methadone Screen Ur Propoxyphene Screen Ur Barbiturates Screen U Tricyclic Antidepress Ur Phencyclidine Scrn Ur Amphetamine Screen U Methamphetamines Scrn U Benzodiazepines Scrn Urine Cocaine Screen U Cannabinoids Screen Influ A Molecular Assay Influ B Molecular Assay Orders Category Date Time Status ABG DRAW REQUEST Stat CARDIO 10/24/19 07:47 Completed EKG-(ED ONLY) Stat CARDIO 10/24/19 07:47 Completed ED ACCUCHECK ASSESSMENT .ONCE EMERGENCY 10/24/19 07:42 Active IV [ED IV/MEDIPORT/POWERPORT] .ONCE EMERGENCY 10/24/19 07:49 Active ABG Stat LAB 10/24/19 07:47 Completed BLOOD CULTURE (ED ONLY) Stat LAB 10/24/19 08:08 Results CBC W/ AUTO DIFF Stat LAB 10/24/19 08:08 Completed CMP [COMPREHENSIVE METABOLIC PANEL] Stat LAB 10/24/19 08:08 Completed CPK [CREATINE KINASE] Stat LAB 10/24/19 08:08 Completed FLU A & B MOLECULAR [FLU A/B MOLECULAR] Stat LAB 10/24/19 07:50 Completed LACTIC ACID Stat LAB 10/24/19 08:08 Completed NT-PROBNP Stat LAB 10/24/19 08:08 Completed PROCALCITONIN Stat LAB 10/24/19 08:08 Completed PT WITH INR Stat LAB 10/24/19 08:08 Completed RAPID STREP SCREEN [MOLECULAR GROUP A STREP] Stat LAB 10/24/19 08:00 Completed TROPONIN I Stat LAB 10/24/19 08:08 Completed UA [URINALYSIS C & S IF INDICATED] Stat LAB 10/24/19 07:50 Completed URIC ACID Stat LAB 10/24/19 08:08 Completed URINE CULTURE Stat LAB 10/24/19 08:00 Completed URINE DRUG SCREEN (RAPID FOR ED) [DRUG SCREEN, URINE, LAB 10/24/19 07:50 Completed RAPID] Stat 0.9 % Sodium Chloride [Saline Flush] MEDS 10/24/19 07:47 Discontinued 1 syr IVF PRN PRN Nitrofurantoin Monohyd/M-Cryst [Macrobid] MEDS 10/24/19 08:50 Discontinued 100 mg PO ONCE STA Sodium Chloride 0.9% [Sodium Chloride] 1,000 ml MEDS 10/24/19 07:47 Discontinued IV BOLUS CHEST, 1V AP ONLY Stat RADS 10/24/19 07:[address] HEAD W/O CONTRAST Stat RADS 10/24/19 08:56 Completed Medications Discontinued Medications Generic Name Dose Route Start Last Admin Trade Name Freq PRN Reason Stop Dose Admin Aspirin 81 mg 10/25/19 08:00 03/30/20 09:14 Aspirin Ec PO 81 mg DAILYWM OLGA Administration Atorvastatin Calcium 10 mg 10/25/19 09:00 10/26/19 09:14 Lipitor PO 10 mg DAILY OLGA Administration Citalopram Hydrobromide 20 mg 10/25/19 09:00 10/26/19 09:16 Celexa PO 20 mg DAILY OLGA Administration Clopidogrel Bisulfate 75 mg 10/25/19 09:00 10/26/19 09:16 Plavix PO 75 mg DAILY OLGA Administration Docusate Sodium 200 mg 10/25/19 09:00 10/26/19 09:15 Colace PO 200 mg DAILY OLGA Administration Enoxaparin Sodium 40 mg 10/24/19 10:30 10/26/19 09:16 Lovenox SUBCUT 40 mg DAILY OLGA Administration Ergocalciferol 50,000 unit 10/26/19 09:00 10/26/19 09:16 Drisdol PO 50,000 unit Mo@0900 OLGA Administration Furosemide 40 mg 10/25/19 06:30 10/26/19 05:47 Lasix Tab PO 40 mg QDAC OLGA Administration Sodium Chloride 1,000 mls @ 500 mls/hr 10/24/19 07:47 10/24/19 08:29 Sodium Chloride IV 10/24/19 09:46 500 mls/hr BOLUS STA Administration Aztreonam 1 gm/ Sodium 50 mls @ 75 mls/hr 10/24/19 21:00 10/26/19 09:13 Chloride IV 10/27/19 20:59 75 mls/hr Q12HR OLGA Administration Insulin Human Regular 0 unit 10/25/19 06:00 10/26/19 17:35 Humulin R SUBCUT 4 unit PRN PRN Administration Hyperglycemia Protocol Isosorbide Mononitrate 60 mg 10/25/19 09:00 10/26/19 09:14 Imdur PO 60 mg DAILY OLGA Administration Linagliptin 5 mg 10/25/19 09:00 10/26/19 09:15 Tradjenta PO 5 mg DAILY OLGA Administration Loratadine 10 mg 10/25/19 09:00 10/26/19 09:14 Claritin PO 10 mg DAILY OLGA Administration Methimazole 2.5 mg 10/25/19 09:00 10/26/19 09:14 Tapazole PO 2.5 mg DAILY OLGA Administration Metoprolol Succinate 50 mg 10/25/19 09:00 10/26/19 09:16 Toprol Xl PO 50 mg DAILY OLGA Administration Nifedipine 30 mg 10/25/19 09:00 10/26/19 09:15 Procardia Xl PO 30 mg DAILY OLGA Administration Nitrofurantoin Macrocrystals 100 mg 10/24/19 08:50 10/24/19 09:21 Macrobid PO 10/24/19 08:51 100 mg ONCE STA Administration Omeprazole 40 mg 10/24/19 17:00 10/26/19 17:35 Prilosec PO 40 mg BIDAC OLGA Administration Ranolazine 1,000 mg 10/24/19 14:30 10/24/19 16:25 Ranexa PO Not Given Q12H OLGA Ranolazine 1,000 mg 10/24/19 21:00 10/26/19 09:13 Ranexa PO 1,000 mg Q12HR OLGA Administration Fluticasone/Salmeterol 1 puff 10/24/19 21:00 10/26/19 09:37 Advair 250-50 Diskus IH 1 puff BID OLGA Administration Sodium Chloride 1 syr 10/24/19 07:47 10/25/19 20:20 Saline Flush IVF 1 syr PRN PRN Administration To flush IV Vital Signs: Temp Pulse Resp BP Pulse Ox 10/24/19 07:31 100 F H 95 H 20 168/99 H 95 Discharge Plan Discharge Patient Disposition: ADMITTED INPATIENT Discharge Problem: Acute UTI, Acute alteration in mental status, Hypertension ED Provider: TOMMY RUIZ Condition: Stable Discharge Date/Time: 10/24/19 10:59
[2019-10-24 08:14] LABS: HEMATOCRIT 36.4 % (37.0-47.0)
--- NOTE | 2019-10-24 08:22 | DI ---
EXAM: Chest one view, frontal view only. HISTORY: Altered level of consciousness. COMPARISON: 08/22/2019. FINDINGS: The heart size is normal. There is no pulmonary vascular congestion. The lungs are clear . No pleural effusion or pneumothorax is seen. No acute osseous abnormality is identified. Left sh oulder reverse arthroplasty and left humeral internal fixation changes are partially imaged. Since t he prior study, there has been no significant interval change. IMPRESSION: No acute cardiopulmonary process.
[2019-10-24] MEDS ORDERED: SODIUM CHLORIDE 1,000 ML IV ONE (08:50)
[2019-10-24] MEDS ORDERED: MACROBID PO STA (08:50)
--- NOTE | 2019-10-24 09:29 | CT ---
EXAM: CT head without contrast COMPARISON: CT of 07/13/2014. HISTORY: Confusion. TECHNIQUE: Noncontrast CT images of the head were obtained. Axial reconstructions with sagittal and coronal reformats were provided. FINDINGS: There is mild to moderate prominence of the sulci, ventricles related to cortical volume l oss. This is overall increase in extent as compared the previous study. Regions of decreased attenu ation involving the periventricular/deep white matter most pronounced adjacent to the frontal horns s uggesting sequela of chronic microvascular ischemic disease. This has also described on the previous study with some mild interval progression as compared to that exam. No evidence of an acute intracr anial hemorrhage. No mass effect or shift of the midline. Scattered vascular calcifications. No ex tra-axial collections are identified. Shields-white differentiation is grossly unremarkable. Small ab encies within the calvarium some of which appear to communicate with the inner table may represent an arachnoid granulations with similar findings on previous CT. Visualized paranasal sinuses are well- aerated. The final report was faxed to the radiology department emergency room at 9:23 a.m. on 10/24/2019. IMPRESSION: 1. No evidence of an acute intracranial hemorrhage. 2. Regions of decreased attenuation throughout the periventricular and deep white matter which are o verall increased as compared to the previous study suggesting some progression of chronic microvascul ar ischemic disease. MRI of the brain with diffusion weighted imaging could be considered if there a re persistent localizing neurological deficits. 3. Cortical volume loss which is overall mildly increased extent. 4. Suspected arachnoid granulations within the calvarium, unchanged.
[2019-10-24 11:25] VITALS: BMI 37.3
[2019-10-24] MEDS ORDERED: AZACTAM 1 GM in SODIUM CHLORIDE 50 ML IV SCH (11:34)
[2019-10-24] MEDS: LOVENOX SUBCUT SCH (13:08)
[2019-10-24] MEDS ORDERED: RANEXA PO SCH (14:30)
[2019-10-24] MEDS: PRILOSEC PO SCH (16:45)
[2019-10-24] MEDS: AZACTAM 1 GM in SODIUM CHLORIDE 50 ML IV SCH (20:48)
[2019-10-24] MEDS: RANEXA PO SCH (20:48)
[2019-10-24] MEDS: ADVAIR 250-50 DISKUS IH SCH (20:48)
[2019-10-25 05:08] LABS: HEMATOCRIT 37.8 % (37.0-47.0)
[2019-10-25] MEDS: PRILOSEC PO SCH ×2 (06:08→16:56)
[2019-10-25] MEDS: LASIX TAB PO SCH (06:08)
[2019-10-25] MEDS: ADVAIR 250-50 DISKUS IH SCH ×2 (09:11→20:18)
[2019-10-25] MEDS: TAPAZOLE PO SCH (09:12)
[2019-10-25] MEDS: TRADJENTA PO SCH (09:12)
[2019-10-25] MEDS: LIPITOR PO SCH (09:13)
[2019-10-25] MEDS: RANEXA PO SCH ×2 (09:13→20:19)
[2019-10-25] MEDS: IMDUR PO SCH (09:14)
[2019-10-25] MEDS: TOPROL XL PO SCH (09:14)
[2019-10-25] MEDS: ASPIRIN EC PO SCH (09:14)
[2019-10-25] MEDS: CELEXA PO SCH (09:15)
[2019-10-25] MEDS: PLAVIX PO SCH (09:15)
[2019-10-25] MEDS: CLARITIN PO SCH (09:15)
[2019-10-25] MEDS: COLACE PO SCH (09:15)
[2019-10-25] MEDS: PROCARDIA XL PO SCH (09:15)
[2019-10-25] MEDS: AZACTAM 1 GM in SODIUM CHLORIDE 50 ML IV SCH ×2 (09:16→20:19)
[2019-10-25] MEDS: LOVENOX SUBCUT SCH (09:17)
[2019-10-25] MEDS: HUMULIN R SUBCUT PRN ×3 (10:53→20:40)
[2019-10-26 05:09] LABS: HEMATOCRIT 36.7 % (37.0-47.0)
[2019-10-26] MEDS: LASIX TAB PO SCH (05:47)
[2019-10-26] MEDS: PRILOSEC PO SCH ×2 (05:47→17:35)
[2019-10-26] MEDS ORDERED: DRISDOL PO SCH (09:00)
[2019-10-26] MEDS: RANEXA PO SCH (09:13)
[2019-10-26] MEDS: AZACTAM 1 GM in SODIUM CHLORIDE 50 ML IV SCH (09:13)
[2019-10-26] MEDS: TAPAZOLE PO SCH (09:14)
[2019-10-26] MEDS: IMDUR PO SCH (09:14)
[2019-10-26] MEDS: CLARITIN PO SCH (09:14)
[2019-10-26] MEDS: ASPIRIN EC PO SCH (09:14)
[2019-10-26] MEDS: LIPITOR PO SCH (09:14)
[2019-10-26] MEDS: COLACE PO SCH (09:15)
[2019-10-26] MEDS: PROCARDIA XL PO SCH (09:15)
[2019-10-26] MEDS: TRADJENTA PO SCH (09:15)
[2019-10-26] MEDS: CELEXA PO SCH (09:16)
[2019-10-26] MEDS: PLAVIX PO SCH (09:16)
[2019-10-26] MEDS: TOPROL XL PO SCH (09:16)
[2019-10-26] MEDS: LOVENOX SUBCUT SCH (09:16)
[2019-10-26] MEDS: ADVAIR 250-50 DISKUS IH SCH (09:37)
[2019-10-26 10:33] VITALS: BP 132/61; TEMP 98.1
[2019-10-26] MEDS: HUMULIN R SUBCUT PRN ×2 (11:18→17:35)
--- NOTE | 2019-11-04 08:31 | HP ---
CHIEF COMPLAINT: She is confused DISCUSSION: This is a 74 year old lady who presented to the emergency department by EMS for change in mental status. She had apparently been confused of her location and circumstance. She has a history of diabetes, hypertension and heart disease compensated and chronic respiratory failure using an oxygen mainly at night. She presented by EMS to the emergency department for confusion. She was thought encephalopathic with stable vitals. She had low grade temperature of 100. She was seen in the emergency department and found to have evidence of pyuria on urinalysis. The ER physician felt that the patient needed to be admitted because of encephalopathy and thought it was secondary to urinary tract infection and was admitted to my services. PAST MEDICAL HISTORY: MEDICATIONS: Lasix Celexa Methimazole Tradjenta Isosorbide Plavix Zyrtec Lipitor Vitamin D2 Metoprolol Omeprazole Advair Aspirin ranolazine Nifedipine Colace ALLERGIES: Cefaclor Cephalexin Monohydrate Erythromycin Macrolide Antibiotics Minocycline Penicillins Skin cleanser PAST MEDICAL HISTORY: COPD Diabetes type II Chronic kidney disease Coronary artery disease Hypertension Urinary incontinence Rhinitis PAST SURGICAL HISTORY: History of hysterectomy. SOCIAL HISTORY: Non-smoker, non-drinker and denies any illicit use of alcohol. FAMILY HISTORY: Reviewed and thought not to be pertinent to discussion. REVIEW OF SYSTEMS: Feels a global weakness. No headaches, visual changes, tinnitus, chest pain, shortness of breath, hemoptysis, abdominal pain, blood in the stool, urinary symptoms or seizures. PHYSICAL EXAMINATION: V/S: Temperature 100, pulse 95, respiratory rate 20, blood pressure 168/99. Oxygen saturation 95% on room air. HEENT: Pupils are round. NECK: Supple. CHEST: Clear. CARDIOVASCULAR: Regular rate and rhythm. ABDOMEN: Soft, nontender. EXTREMITIES: Distal extremities without cyanosis or edema. LABS: Were reviewed and found to have a urinalysis with 4+ bacteria and cultures are pending. ASSESSMENT: 1. Encephalopathy probably secondary #2 and or multifactorial 2. Bacteruria 3. COPD 4. Coronary artery disease 5. Diabetes Mellitus type II 6. Chronic kidney disease PLAN: 1. Admission 2. We are going to continue antibiotics pending results of cultures Please see orders. MTDD
--- NOTE | 2019-11-04 08:54 | DS ---
PRINCIPAL DIAGNOSIS: 1. Change in mental status possible early dementia 2. Chronic kidney disease 3. Diabetes type 2 4. Coronary artery disease DISCUSSION: This is a 74 year old lady who presented to the emergency department by EMS for change in mental status. She had apparently been confused of her location and circumstance. She has a history of diabetes, hypertension and heart disease compensated and chronic respiratory failure using an oxygen mainly at night. She presented by EMS to the emergency department for confusion. She was thought encephalopathic with stable vitals. She had low grade temperature of 100. She was seen in the emergency department and found to have evidence of pyuria on urinalysis. The ER physician felt that the patient needed to be admitted because of encephalopathy and thought it was secondary to urinary tract infection and was admitted to my services. CLINICAL COURSE: She was admitted to my services thinking that she had encephalopathy secondary to UTI as she had 4+ bacteria on urinalysis. Her mental status improved shortly after hospitalization. She did defervesce. She had no cough. Her urinalysis returned as a contaminant otherwise negative. At this point in discussion with the patient, the patient's daughter Terri we felt the patient was back to baseline in turns of mental status and she will return home. We will also try to enlist Home Health to see her. her blood pressure will be monitored at home as well as blood sugars. PHU
== END 2019-10-26 18:46 | disposition home or self-care (01) | DRG 690 ==
LOC: ED 07:17 → MEDSURG B 10:05
PROVIDERS: ADMIT Family Medicine; ATTEND Family Medicine
DX: Z99.81 Dependence on supplemental oxygen; J44.9 Chronic obstructive pulmonary disease, unspecified; N18.9 Chronic kidney disease, unspecified; R60.9 Edema, unspecified; R06.2 Wheezing; R53.1 Weakness; N39.0 Urinary tract infection, site not specified; E11.9 Type 2 diabetes mellitus without complications; R42 Dizziness and giddiness; I25.10 Atherosclerotic heart disease of native coronary artery without angina pectoris; R51 Headache; R41.82 Altered mental status, unspecified; I10 Essential (primary) hypertension; R53.83 Other fatigue; R11.0 Nausea; J96.10 Chronic respiratory failure, unspecified whether with hypoxia or hypercapnia